=== PATIENT | female | born 1960 | race Caucasian/White ===

== ENCOUNTER 2017-02-13 07:00 | Day surgery (SDC) | payer BC, OTHER ==
[~2017-02-13 07:00] MED LIST: FENTANYL 250 MCG/5 ML AMP IV PRN; LACTATED RINGERS 1,000 ML IV SCH; MIDAZOLAM HCL 5 MG/5 ML VIAL IV PRN
[2017-02-13] MEDS ORDERED: LACTATED RINGERS 1,000 ML ONE (07:12)
[2017-02-13] MEDS ORDERED: IV START KIT ONE (07:12)
[2017-02-13] MEDS ORDERED: MIDAZOLAM HCL 5 MG/5 ML VIAL ONE (08:15)
[2017-02-13] MEDS ORDERED: FENTANYL 250 MCG/5 ML AMP ONE (08:15)
[2017-02-13] MEDS ORDERED: LIDOCAINE Viscous 2% 15 ML UDCUP ONE (08:16)
[2017-02-13] MEDS ORDERED: LIDOCAINE Viscous 2% 15 ML UDCUP PO PRN (08:21)
== END 2017-02-13 09:30 | disposition home or self-care (01) ==
LOC: SDC 07:00
PROVIDERS: ATTEND Internal Medicine Gastroenterology
PROC: 0DJD8ZZ Inspection of Lower Intestinal Tract, Via Natural or Artificial Opening Endoscopic (ICD-10-PCS; principal; 2017-02-13)
DX: Z12.11 Encounter for screening for malignant neoplasm of colon (principal)
CPT/HCPCS: 45378; J3010; J2250; A9270; J7120